=== PATIENT | male | born 1935 | race Caucasian/White ===

== ENCOUNTER 2016-10-23 21:17 | Inpatient (IN) | payer MEDICARE ==
--- NOTE | ~2016-10-23 | DS ---
Discharge Summary [facility] [address] [place]. [address] NAME: LARRY VELIZ : 31 STATUS : [facility]#: [id number] AGE: 81 ADM/REG DATE : 10/23/16 MR#: [id number] REPORT SERV DATE: 10/29/16 DICTATED BY: SIMON REYEZ DATE: 10/29/16 REPORT STATUS : Draft TRANSCRIBED BY: MODL DATE: 10/29/16 ADMISSION DATE: 10/23/2016 DISCHARGE DATE: FINAL DIAGNOSES: 1. Reflux esophagitis. 2. Duodenitis. 3. Status post gastrointestinal bleed. 4. Coronary artery disease with history of coronary artery bypass graft and stent. 5. Hypertension. 6. Status post acute kidney injury. DIAGNOSTIC EXAMS: Chest x-ray showing chronic changes bilaterally. No acute abnormality. Barium swallow showing normal deglutination without penetration or aspiration. Normal cervical and thoracic esophageal motility with no stricture, ulceration, or mass. Small sliding hiatal hernia. No GE reflux identified. HOSPITAL COURSE: Please refer to the H and P done by Dr. Lara, dated on October 23, 2016. Briefly, this is an 81-year-old female, who went to [facility] for hematemesis. The patient was found to have anemia and was initially placed in the intensive care unit. He was also found to have an ANAND, which resolved with hydration. The patient did not need any transfusion; however, they could not get the GI doctor there to evaluate the patient, so the daughter requested transfer of the patient to our hospital to be seen by Dr. Garcia. The patient was accepted by Dr. Lara. We monitored the H and H, which remained stable and on discharge, it was at 9.3 and 27.9. The patient got the above tests, and Dr. Garcia did an EGD, which showed moderately severe reflux esophagitis, hiatus hernia, and duodenitis. The patient was cleared to get his antiplatelets again and the patient did so without any problems. We did a barium swallow. He passed it and the patient was placed on a mechanical soft diet and tolerated it well. Meanwhile, the daughter was requesting that the patient to go to [facility] to gain his strength back up and he could also be with his . We got approval from [facility] today, so the patient will be transferred there with the above diagnosis. He will be on the following medications: Aspirin 81 mg a day, Coreg 3.125 mg twice a day, Plavix 75 mg a day, lisinopril 40 mg a day, multivitamin once a day, Protonix 40 mg twice a day, Paxil 20 mg at bedtime, Carafate 1 g q.a.c. and at bedtime, Crestor 10 mg at bedtime, MiraLAX p.r.n., Tylenol 325 mg p.r.n., ProAir two puffs p.r.n., Zofran p.r.n., nitroglycerin p.r.n., and Cortisporin otic every eight hours as needed. The patient will follow up with the [facility] doctor, then follow up with Dr. Lovelace on discharge, follow up with Dr. Garcia per his recommendations. This has been explained to the patient in front of the daughter. They agreed and understood the plan. ALEX/MICHAEL Simon Joseph Discharge Summary [address] [address] NAME: LARRY VELIZ : 33 STATUS : [facility]#: [id number] AGE: 81 ADM/REG DATE : 10/23/16 MR#: [id number] REPORT SERV DATE: 10/29/16 DICTATED BY: SIMON REYEZ DATE: 10/29/16 REPORT STATUS : Draft TRANSCRIBED BY: MICHAEL DATE: 10/29/16 Hammad Reyez / [id number] CC: Hammad Gavin M.D.
--- NOTE | ~2016-10-23 | EGD ---
EGD REPORT [facility] [address] [place] [address] NAME: LARRY WALDEN : 31 STATUS : ADM IN PAT#: [id number] AGE: 81 ADM/REG DATE : 10/23/16 MR#: [id number] REPORT SERV DATE: 10/27/16 DICTATED BY: MIRIAM JAVIER DATE: 10/27/16 REPORT STATUS : Draft TRANSCRIBED BY: [facility] DATE: 10/27/16 [facility] Patient Name: Larry Walden Date of : 1935 Attending MD: MIRIAM JAVIER MD Procedure Date No Time: 10/27/2016 Procedure: Upper GI endoscopy Indications: Dysphagia, Heartburn, Suspected esophageal reflux, Hematemesis, Nausea with vomiting Referring MD: CHERELLE PAREKH Medicines: as per anesthesia Complications: No immediate complications. Procedure: After obtaining informed consent, the endoscope was passed under direct vision. Throughout the procedure, the patient's blood pressure, pulse, and oxygen saturations were monitored continuously. The GIF [id number] was introduced through the mouth, and advanced to the third part of duodenum. The upper GI endoscopy was accomplished without difficulty. The patient tolerated the procedure. Findings: Moderately severe esophagitis was found in the lower third of the esophagus. A small hiatus hernia was present. Localized moderate inflammation characterized by erythema and friability was found in the duodenal bulb. Impression: - Moderately severe reflux esophagitis. - Hiatus hernia. - Duodenitis. Recommendation: - Follow an antireflux regimen. - Continue present medications. - Use sucralfate suspension 1 gram PO QID. Procedure Code(s): --- Professional --- 70243, Esophagogastroduodenoscopy, flexible, transoral; diagnostic, including collection of specimen(s) by brushing or washing, when performed (separate procedure) Diagnosis Code(s): --- Professional --- K21.0, Gastro-esophageal reflux disease with esophagitis K44.9, Diaphragmatic hernia without obstruction or gangrene EGD REPORT [facility] [address] [place] [address] NAME: LARRY WALDEN : 31 STATUS : ADM [facility]#: [id number] AGE: 81 ADM/REG DATE : 10/23/16 MR#: [id number] REPORT SERV DATE: 10/27/16 DICTATED BY: MIRIAM JAVIER. DATE: 10/27/16 REPORT STATUS : Draft TRANSCRIBED BY: [employer] DATE: 10/27/16 K29.80, Duodenitis without bleeding R13.10, Dysphagia, unspecified R12, Heartburn K92.0, Hematemesis R11.2, Nausea with vomiting, unspecified CPT copyright 2013 [employer]. All rights reserved. The codes documented in this report are preliminary and upon death surveys coder review may be revised to meet current compliance requirements. MIRIAM JAVIER MD 10/27/2016 2:19 PM This report has been signed electronically. Number of Addenda: 0 Note Initiated On: 10/27/2016 2:00 PM Scope Withdrawal Time 0 hours 0 minutes 0 seconds [address] [place] [address]
--- NOTE | ~2016-10-23 | DS ---
Discharge Summary [place] [place] [address] [place]. [address] NAME: LARRY VELIZ : 31 STATUS : DIS IN PAT#: [id number] AGE: 81 ADM/REG DATE : 10/23/16 MR#: [id number] REPORT SERV DATE: 11/01/16 DICTATED BY: SIMON REYEZ DATE: 10/31/16 REPORT STATUS : Draft TRANSCRIBED BY: MODOpal DATE: 10/31/16 ADMISSION DATE: 10/23/2016 DISCHARGE DATE: 10/31/2016 FINAL DIAGNOSES: 1. Reflux esophagitis. 2. Duodenitis. 3. Status post GI bleed. 4. CAD with history of CABG and stent. 5. Hypertension. 6. Status post acute kidney injury. HOSPITAL COURSE: Please refer to the H and P done by Dr. Lara on July 24. My interim discharge summary done 10/29, since my previous dictation the patient was observed for 2 more days because he has been having some retching and vomiting, when he wakes up in the morning; however, during the day he gets better. I discussed the case with GI and he said that he will have his symptoms for a while until that severe esophagitis in the lower 3rd of the esophagus gets better. This was also explained to the daughter. The patient today is also much better. He denies any vomiting and wants to go to [facility], so that he could see his there. The patient vitals remained stable. He will now be discharged there with the above diagnosis. He will continue his medications that I have dictated 2 days ago. He will follow up with the [facility] doctor, follow up with Dr. Garcia, as per his recommendation and follow up with Dr. Lovelace after [facility] discharge. The patient wanted me to discuss things with his daughter and I did in front of him in the room. TIME SPENT: Total 35 minutes. ALEX/MICHAEL Simon Reyez M.D. / [id number] CC: Hammad Gavin M.D.
--- NOTE | ~2016-10-23 | HP ---
History And Physical [facility] [address] [facility] [place]. [address] NAME: LARRY VELIZ : 33 STATUS : ADM IN PAT#: [id number] AGE: 81 ADM/REG DATE : 10/23/16 MR#: [id number] REPORT SERV DATE: 10/24/16 DICTATED BY: ILENE VIRGEN DATE: 10/23/16 REPORT STATUS : Draft TRANSCRIBED BY: MODL DATE: 10/23/16 DATE OF ADMISSION: 10/23/2016 HISTORY OF PRESENT ILLNESS: This patient was a direct transfer from [facility] where he was hospitalized starting 10/19/2016. The patient was transferred to [facility] because of the family request. I personally spoke with transferring physician Dr. Maximilian Fortune, who reported that the patient was admitted to the hospital because of nausea, vomiting, and hematemesis that he had on the day of admission to [facility] as well as initially he was diagnosed with anemia with hemoglobin being in the range of 8, and he was initially placed in intensive care unit and he was watched as well as he was found to have acute kidney injury which resolved with IV fluid hydration. The patient had abnormal swallowing study and he was found to have swallowing dysfunction as well. Because of still having nausea and vomiting, he was transferred to [facility] as well as Dr. Fortune was reluctant to start the patient on Plavix because he told me that the patient needs GI evaluation before Plavix should be restarted. They requested Dr. Garcia to see this patient because according to patient's daughter, Dr. Garcia did upper endoscopy on the patient in 07/2016, and at that time, according to patient's daughter, who is at the bedside, it was normal. The patient's daughter reported that on the day of admission to [facility], the patient had abdominal pain and vomiting and he vomited several times, she saw bright red blood in significant amount. The patient does not have now any chest pain, no shortness of breath, no abdominal pain, no fever, no rash. Daughter says that he is still having nausea, and he is having epigastric discomfort, but the patient does not have any chest pain, no shortness of breath, no abdominal pain, no fever, no rash. The patient also has hypertension. REVIEW OF SYSTEMS: All 14-point review of systems done and negative except what is stated in the history of present illness. PAST MEDICAL HISTORY: Past medical history on this patient is known for history of coronary artery disease with a history of a coronary artery bypass grafting, history of stent placement more than a year ago, history of hyperlipidemia, and hypertension. Also the patient's daughter reported that before this hospitalization at [facility], the patient had another hospitalization at [facility] and this hospitalization was on 09/28/2016 when he was diagnosed with pneumonia which was treated with Levaquin. PAST SURGICAL HISTORY: Includes appendectomy and history of coronary artery bypass grafting. The patient's urinalysis technician is Dr. Marquez, and janitor cleaner, Dr. Garcia. SOCIAL HISTORY: He lives with his family. He is . He quit smoking 40 years ago, was 1 pack a day. No alcohol. No recreational drug use. The patient's daughter denied any history of strokes. No history of thyroid disease. No history of diabetes. She reported that the patient was functioning well, was able to ambulate before this happened, but now, he is extremely weak. History And Physical [address] [address] NAME: LARRY VELIZ : 31 STATUS : ADM IN [facility]#: [id number] AGE: 81 ADM/REG DATE : 10/23/16 MR#: [id number] REPORT SERV DATE: 10/24/16 DICTATED BY: ILENE VIRGEN DATE: 10/23/16 REPORT STATUS : Draft TRANSCRIBED BY: MICHAEL DATE: 10/23/16 MEDICATIONS: Home medications include Tylenol 325 mg p.o. daily as needed, albuterol 2 puffs inhaled q.4 hours p.r.n., aspirin 81 mg daily, carvedilol 3.125 p.o. b.i.d., Plavix 75 mg daily which was on hold, Levaquin 50 mg daily, lisinopril 40 mg daily, multivitamins 1 tablet daily, nitroglycerin 0.4 mg sublingually as needed for chest pain, Zofran 4 mg twice a day p.r.n., paroxetine 20 mg daily, MiraLAX one packet daily, Crestor 10 mg daily, ear drops daily. FAMILY HISTORY: The patient's mother in 1988 from heart attack. The patient's father in 1977 from lung cancer. REVIEW OF SYSTEMS: All 14-point review of systems done and negative except what is stated in the history of present illness. PHYSICAL EXAMINATION: GENERAL: Well-nourished, well-developed male, not in acute distress. Resting quietly. VITAL SIGNS: Blood pressure 186/83, temperature 98.5, heart rate 76, respiratory rate 19, oxygen saturation 100 on room air. HEENT: Head atraumatic, normocephalic. Conjunctivae clear. Pupils are equal and reactive to light and accommodation. Extraocular muscles are intact. NECK: Supple. Trachea is midline. No supraclavicular or cervical lymphadenopathy. LUNGS: Diminished breath sounds bilaterally. Decreased respiratory effort. CARDIOVASCULAR SYSTEM: Regular rate and rhythm. Point of maximal impulse not displaced. Positive systolic murmur. ABDOMEN: Soft, nontender, nondistended. Positive normoactive bowel sounds. EXTREMITIES: No clubbing, cyanosis, or edema. SKIN: Normal color and turgor. LABORATORY RESULTS: Laboratory results were sent today from [facility]. I did a full review of laboratory results sent from [facility] which showed white count 4.9, hemoglobin 8.7, hematocrit 26.6, and platelet count 107. Sodium 141, potassium 4.2, chloride 105, carbon dioxide 27, BUN 10, creatinine 1.2, blood sugar was 98, calcium was 8.4. The patient had a chest x-ray, which was done on 10/19/2016 which showed enlarged heart, history of prior coronary artery bypass grafting, increased density at the left base is on the prior exam, chronically appearing interstitial reaction; interval placement of the PICC line, at that time he had a PICC line placement. Ultrasound of the kidney was within normal limits. Swallowing study which was done also at [facility]. The patient's swallowing mechanism was evaluated under fluoroscopy with assistance from speech pathology. Portable technique was utilized at the bed side. Fluoroscopy time was 2 minutes and 48 seconds. No permanent images were obtained. The patient was challenged with thin barium in which there was penetration and aspiration with some vallecular residue. With nectar thick, there was penetration and aspiration noted. With honey thick, there was laryngeal penetration with vallecular pooling. With puree, there was some penetration but no aspiration. Mechanical soft could not be administered due to the patient's being edentulous. History And Physical [place] [address] [facility] [place]. [address] NAME: LARRY VELIZ : 31 STATUS : ADM IN PAT#: [id number] AGE: 81 ADM/REG DATE : 10/23/16 MR#: [id number] REPORT SERV DATE: 10/24/16 DICTATED BY: ILENE VIRGEN DATE: 10/23/16 REPORT STATUS : Draft TRANSCRIBED BY: MODOpal DATE: 10/23/16 IMPRESSION: Penetration and some aspiration noted with several consistencies as discussed above. During this hospitalization, the patient was seen by breaker machine operator, Dr. Winter, his kidney function normalized. ASSESSMENT AND PLAN: This is an 81-year-old male, who basically was transferred from [facility] for further gastroenterological evaluation for his hematemesis and epigastric discomfort with nausea and vomiting. Dr. Vicente saw the patient today at [facility], and he is going to follow up on him tomorrow. Dr. Fotrune, physician at [facility] did not start the patient back on Plavix until his stomach will be evaluated, so janitor cleaner to make a decision on his Plavix if it should be started or he needs to have another upper endoscopy. Dr. Vicente is to be contracts advisor for Dr. Garcia according to Dr. Vicente report since I saw Dr. Vicente here. Dr. Vicente also was okay to restart aspirin, but he recommended to hold Plavix. Swallowing dysfunction with abnormal swallowing study. The patient had an evaluation at [facility]. For further recommendations to have swallowing study at [facility] because he had abnormalities in the swallowing and aspiration, so at [facility] he was recommended to be on thickened liquids, soft mechanical diet with meat grounded with gravy and aspiration precautions, but we do not see if it was recommended to have electrical stimulation therapy and technique was used at the bed side, so I would recommend modified barium swallowing study, may be on Wednesday. Acute kidney injury, currently resolved. We will recheck his creatinine tomorrow morning. If still normal, my partner could restart his lisinopril. Dr. Vicente also told me that it is okay to restart baby aspirin but I will put him also on Protonix. History of coronary artery disease, unclear if he has congestive heart failure or not, I will check his brain natriuretic peptide. Weakness, he may need a physical therapy. I will check on this patient's EKG. I will put him on hydralazine as needed for systolic blood pressure above 160. Currently, his blood pressure is elevated, it is 186. My partner, Dr. Goldman will see this patient starting tomorrow morning. MG/MODL Ilene Virgen M.D. History And Physical [address] [address] NAME: LARRY VELIZ : 31 STATUS : ADM IN PAT#: [id number] AGE: 81 ADM/REG DATE : 10/23/16 MR#: [id number] REPORT SERV DATE: 10/24/16 DICTATED BY: ILENE VIRGEN DATE: 10/23/16 REPORT STATUS : Draft TRANSCRIBED BY: MICHAEL DATE: 10/23/16 / [id number] CC: Ilene Virgen M.D.
[2016-10-23] MEDS ORDERED: COREG3 PO (21:48)
[2016-10-23] MEDS ORDERED: CRESTOR10 PO (21:48)
[2016-10-23] MEDS ORDERED: PLAVIX PO (21:48)
[2016-10-23] MEDS ORDERED: PAX20 PO (21:50)
[2016-10-23] MEDS ORDERED: ASAB PO (21:50)
[2016-10-23] MEDS ORDERED: LISINOPRIL40 MG PO (21:50)
[2016-10-23] MEDS ORDERED: MULTIVIT/MIN PO (21:51)
[2016-10-23] MEDS ORDERED: MIRALAX POWDER1 PKT PO (21:51)
[2016-10-23] MEDS ORDERED: T PO (21:52)
[2016-10-23] MEDS ORDERED: PROAIR HFA INH (21:52)
[2016-10-23] MEDS ORDERED: ZOFRAN ODT4 MG PO (21:52)
[2016-10-23] MEDS ORDERED: RX EAR DROPS OT (21:53)
[2016-10-23] MEDS ORDERED: LEVAQUIN5T PO (21:54)
[2016-10-23] MEDS ORDERED: NITROSTAT0.4 MG PO (21:54)
[2016-10-24 01:08] LABS: ULTRASENSITIVE TSH 1.35 MCIU/ML (0.358-3.740)
[2016-10-24 01:09] LABS: FOLATE 33.8 NG/ML (>5.2)
[2016-10-24 07:12] LABS: BASOPHILS 0.2 %; BASOPHILS ABSOLUTE 0.01 10/3/uL (0.0-0.16); EOSINOPHILS 3.2 %; EOSINOPHILS ABSOLUTE 0.19 10/3/uL (0.0-0.53); HEMATOCRIT 27.7 % (40.0-51.0); IMMATURE GRANULOCYTES 0.2 %; IMMATURE GRANULOCYTES ABSOLUTE 0.01 10/3/uL (0.0-0.11); LYMPHOCYTES 30.4 %; LYMPHOCYTES ABSOLUTE 1.79 10/3/uL (0.67-4.30); MEAN CORPUS HGB CONC 32.5 g/dL (32.0-36.0); MEAN CORPUSCULAR HEMOGLOB 30.7 pg (26.0-34.0); MEAN CORPUSCULAR VOLUME 94.5 fL (80-100); MEAN PLATELET VOLUME 9.3 fL (9.2-13.0); MONOCYTES 8.5 %; NEUTROPHILS 57.5 %; NEUTROPHILS ABSOLUTE 3.39 10/3/uL (2.02-8.40); PLATELET COUNT 134 10/3/uL (150-400); RBC DISTRIBUTION WIDTH 13.9 % (12.0-16.0); RED CELL COUNT 2.93 10/6/uL (4.7-6.1); WHITE BLOOD CELLS 5.9 10/3/uL (4.5-10.5)
[2016-10-24 07:15] LABS: MANUAL DIFF NO %
[2016-10-24 07:27] LABS: BUN (BLOOD UREA NITROGEN) 9 MG/DL (6-23); CALCIUM, SERUM 8.5 MG/DL (8.5-10.4); CHLORIDE, SERUM 109 MMOL/L (96-112); CO2 (CARBON DIOXIDE) 24 MMOL/L (24-34); CREATININE 0.98 MG/DL (0.70-1.30); GFR AFRICAN AMERICAN 82 ML/MIN (>=60); GFR NON AFRICAN AMERICAN 71 ML/MIN (>=60); GLUCOSE, SERUM 87 MG/DL (60-99); POTASSIUM, SERUM 3.9 MMOL/L (3.5-5.3); SODIUM, SERUM 143 MMOL/L (135-148)
[2016-10-24 16:58] LABS: % IRON SAT 13 % (20-50); ALBUMIN 2.5 G/DL (3.5-5.0); ALKALINE PHOSPHATASE 63 U/L (45-117); DIRECT BILIRUBIN 0.1 MG/DL (0.0-0.4); FERRITIN 316 NG/ML (26-388); INDIRECT BILIRUBIN(NOT ORDER) 0.2 MG/DL (0.1-0.9); IRON BINDING CAPACITY 171 MCG/DL (250-450); IRON, SERUM 23 MCG/DL (35-150); SGOT(AST) 20 U/L (5-40); SGPT(ALT) 21 U/L (5-65); TOTAL BILIRUBIN 0.3 MG/DL (0-1.2); TOTAL PROTEIN 5.9 G/DL (6.0-8.5)
[2016-10-24 16:59] LABS: FOLATE 33.3 NG/ML (>5.2)
[2016-10-24] MEDS ORDERED: CORTOTSOL OT (17:20)
[2016-10-24 19:26] LABS: ASCORBIC ACID (UR NOT ORDER) NEG (NEG); BILIRUBIN, URINE NEGATIVE (NEG); KETONE, URINE TRACE MG/DL (NEG); LEUKOCYTE ESTERASE(NOT OR NEG (NEG); WBC (NOT ORDERED) (RFLEX) < 1 (0-5)
[2016-10-25 04:28] LABS: BASOPHILS 0.5 %; BASOPHILS ABSOLUTE 0.03 10/3/uL (0.0-0.16); EOSINOPHILS 4.6 %; EOSINOPHILS ABSOLUTE 0.27 10/3/uL (0.0-0.53); HEMOGLOBIN 9.3 g/dL (13.6-17.8); IMMATURE GRANULOCYTES 0.2 %; IMMATURE GRANULOCYTES ABSOLUTE 0.01 10/3/uL (0.0-0.11); LYMPHOCYTES 36.2 %; LYMPHOCYTES ABSOLUTE 2.14 10/3/uL (0.67-4.30); MEAN CORPUS HGB CONC 33.2 g/dL (32.0-36.0); MEAN CORPUSCULAR HEMOGLOB 32.4 pg (26.0-34.0); MEAN PLATELET VOLUME 9.7 fL (9.2-13.0); MONOCYTES 8.6 %; MONOCYTES ABSOLUTE 0.51 10/3/uL (0.21-1.20); NEUTROPHILS 49.9 %; NEUTROPHILS ABSOLUTE 2.95 10/3/uL (2.02-8.40); PLATELET COUNT 135 10/3/uL (150-400); RBC DISTRIBUTION WIDTH 13.8 % (12.0-16.0); RED CELL COUNT 2.87 10/6/uL (4.7-6.1); WHITE BLOOD CELLS 5.9 10/3/uL (4.5-10.5)
[2016-10-25 04:29] LABS: MANUAL DIFF NO %; MEAN CORPUSCULAR VOLUME 97.6 fL (80-100)
[2016-10-25 04:42] LABS: BUN (BLOOD UREA NITROGEN) 11 MG/DL (6-23); CALCIUM, SERUM 8.3 MG/DL (8.5-10.4); CHLORIDE, SERUM 110 MMOL/L (96-112); CO2 (CARBON DIOXIDE) 24 MMOL/L (24-34); GFR AFRICAN AMERICAN 72 ML/MIN (>=60); GFR NON AFRICAN AMERICAN 62 ML/MIN (>=60); GLUCOSE, SERUM 92 MG/DL (60-99); POTASSIUM, SERUM 4.1 MMOL/L (3.5-5.3); SODIUM, SERUM 142 MMOL/L (135-148)
[2016-10-26 07:14] LABS: BASOPHILS 0.3 %; BASOPHILS ABSOLUTE 0.02 10/3/uL (0.0-0.16); EOSINOPHILS ABSOLUTE 0.17 10/3/uL (0.0-0.53); HEMATOCRIT 27.2 % (40.0-51.0); IMMATURE GRANULOCYTES 0.2 %; IMMATURE GRANULOCYTES ABSOLUTE 0.01 10/3/uL (0.0-0.11); LYMPHOCYTES 33.3 %; LYMPHOCYTES ABSOLUTE 1.92 10/3/uL (0.67-4.30); MEAN CORPUS HGB CONC 33.1 g/dL (32.0-36.0); MEAN CORPUSCULAR VOLUME 96.8 fL (80-100); MEAN PLATELET VOLUME 9.7 fL (9.2-13.0); MONOCYTES 9.5 %; MONOCYTES ABSOLUTE 0.55 10/3/uL (0.21-1.20); NEUTROPHILS 53.7 %; NEUTROPHILS ABSOLUTE 3.09 10/3/uL (2.02-8.40); PLATELET COUNT 145 10/3/uL (150-400); RBC DISTRIBUTION WIDTH 13.6 % (12.0-16.0); RED CELL COUNT 2.81 10/6/uL (4.7-6.1); WHITE BLOOD CELLS 5.8 10/3/uL (4.5-10.5)
[2016-10-26 07:18] LABS: MANUAL DIFF NO %
[2016-10-26 07:31] LABS: BUN (BLOOD UREA NITROGEN) 11 MG/DL (6-23); CALCIUM, SERUM 8.4 MG/DL (8.5-10.4); CHLORIDE, SERUM 108 MMOL/L (96-112); CO2 (CARBON DIOXIDE) 24 MMOL/L (24-34); CREATININE 0.98 MG/DL (0.70-1.30); GFR AFRICAN AMERICAN 82 ML/MIN (>=60); GFR NON AFRICAN AMERICAN 71 ML/MIN (>=60); GLUCOSE, SERUM 84 MG/DL (60-99); SODIUM, SERUM 141 MMOL/L (135-148)
[2016-10-27 05:27] LABS: BASOPHILS 0.3 %; BASOPHILS ABSOLUTE 0.02 10/3/uL (0.0-0.16); EOSINOPHILS 2.2 %; EOSINOPHILS ABSOLUTE 0.13 10/3/uL (0.0-0.53); HEMATOCRIT 28.2 % (40.0-51.0); HEMOGLOBIN 9.3 g/dL (13.6-17.8); IMMATURE GRANULOCYTES 0.2 %; IMMATURE GRANULOCYTES ABSOLUTE 0.01 10/3/uL (0.0-0.11); LYMPHOCYTES 27.1 %; LYMPHOCYTES ABSOLUTE 1.58 10/3/uL (0.67-4.30); MEAN CORPUSCULAR HEMOGLOB 31.7 pg (26.0-34.0); MEAN CORPUSCULAR VOLUME 96.2 fL (80-100); MEAN PLATELET VOLUME 9.4 fL (9.2-13.0); MONOCYTES 10.8 %; MONOCYTES ABSOLUTE 0.63 10/3/uL (0.21-1.20); NEUTROPHILS 59.4 %; NEUTROPHILS ABSOLUTE 3.46 10/3/uL (2.02-8.40); PLATELET COUNT 188 10/3/uL (150-400); RBC DISTRIBUTION WIDTH 13.7 % (12.0-16.0); RED CELL COUNT 2.93 10/6/uL (4.7-6.1); WHITE BLOOD CELLS 5.8 10/3/uL (4.5-10.5)
[2016-10-27 05:30] LABS: MANUAL DIFF NO %
[2016-10-27 05:57] LABS: BUN (BLOOD UREA NITROGEN) 12 MG/DL (6-23); CALCIUM, SERUM 8.3 MG/DL (8.5-10.4); CHLORIDE, SERUM 107 MMOL/L (96-112); CO2 (CARBON DIOXIDE) 26 MMOL/L (24-34); CREATININE 1.04 MG/DL (0.70-1.30); GFR AFRICAN AMERICAN 77 ML/MIN (>=60); GFR NON AFRICAN AMERICAN 66 ML/MIN (>=60); GLUCOSE, SERUM 112 MG/DL (60-99); POTASSIUM, SERUM 3.9 MMOL/L (3.5-5.3); SODIUM, SERUM 140 MMOL/L (135-148)
[2016-10-28 05:15] LABS: BASOPHILS 0.2 %; BASOPHILS ABSOLUTE 0.01 10/3/uL (0.0-0.16); EOSINOPHILS 2.9 %; EOSINOPHILS ABSOLUTE 0.14 10/3/uL (0.0-0.53); HEMATOCRIT 27.4 % (40.0-51.0); HEMOGLOBIN 8.9 g/dL (13.6-17.8); LYMPHOCYTES 35.5 %; LYMPHOCYTES ABSOLUTE 1.73 10/3/uL (0.67-4.30); MEAN CORPUS HGB CONC 32.5 g/dL (32.0-36.0); MEAN CORPUSCULAR HEMOGLOB 31.3 pg (26.0-34.0); MEAN CORPUSCULAR VOLUME 96.5 fL (80-100); MEAN PLATELET VOLUME 9.2 fL (9.2-13.0); MONOCYTES 10.9 %; MONOCYTES ABSOLUTE 0.53 10/3/uL (0.21-1.20); NEUTROPHILS 50.5 %; NEUTROPHILS ABSOLUTE 2.46 10/3/uL (2.02-8.40); PLATELET COUNT 179 10/3/uL (150-400); RBC DISTRIBUTION WIDTH 13.6 % (12.0-16.0); RED CELL COUNT 2.84 10/6/uL (4.7-6.1); WHITE BLOOD CELLS 4.9 10/3/uL (4.5-10.5)
[2016-10-28 05:20] LABS: MANUAL DIFF NO %
[2016-10-28 05:29] LABS: CALCIUM, SERUM 7.9 MG/DL (8.5-10.4); CHLORIDE, SERUM 107 MMOL/L (96-112); CO2 (CARBON DIOXIDE) 28 MMOL/L (24-34); CREATININE 1.02 MG/DL (0.70-1.30); GFR AFRICAN AMERICAN 78 ML/MIN (>=60); GFR NON AFRICAN AMERICAN 68 ML/MIN (>=60); GLUCOSE, SERUM 108 MG/DL (60-99); POTASSIUM, SERUM 4.1 MMOL/L (3.5-5.3); SODIUM, SERUM 141 MMOL/L (135-148)
[2016-10-28 05:35] LABS: BUN (BLOOD UREA NITROGEN) 8 MG/DL (6-23)
[2016-10-29 05:20] LABS: BASOPHILS 0.4 %; BASOPHILS ABSOLUTE 0.02 10/3/uL (0.0-0.16); EOSINOPHILS ABSOLUTE 0.11 10/3/uL (0.0-0.53); HEMATOCRIT 27.9 % (40.0-51.0); HEMOGLOBIN 9.3 g/dL (13.6-17.8); IMMATURE GRANULOCYTES 0.2 %; IMMATURE GRANULOCYTES ABSOLUTE 0.01 10/3/uL (0.0-0.11); LYMPHOCYTES ABSOLUTE 1.95 10/3/uL (0.67-4.30); MEAN CORPUS HGB CONC 33.3 g/dL (32.0-36.0); MEAN CORPUSCULAR HEMOGLOB 30.8 pg (26.0-34.0); MEAN PLATELET VOLUME 9.3 fL (9.2-13.0); MONOCYTES 5.7 %; MONOCYTES ABSOLUTE 0.31 10/3/uL (0.21-1.20); NEUTROPHILS 55.7 %; NEUTROPHILS ABSOLUTE 3.01 10/3/uL (2.02-8.40); RBC DISTRIBUTION WIDTH 13.9 % (12.0-16.0); RED CELL COUNT 3.02 10/6/uL (4.7-6.1); WHITE BLOOD CELLS 5.4 10/3/uL (4.5-10.5)
[2016-10-29 05:27] LABS: MANUAL DIFF NO %; MEAN CORPUSCULAR VOLUME 92.4 fL (80-100); PLATELET COUNT 234 10/3/uL (150-400)
[2016-10-30 05:37] LABS: BUN (BLOOD UREA NITROGEN) 8 MG/DL (6-23); CHLORIDE, SERUM 108 MMOL/L (96-112); CO2 (CARBON DIOXIDE) 27 MMOL/L (24-34); CREATININE 1.11 MG/DL (0.70-1.30); GFR AFRICAN AMERICAN 71 ML/MIN (>=60); GFR NON AFRICAN AMERICAN 61 ML/MIN (>=60); GLUCOSE, SERUM 116 MG/DL (60-99); POTASSIUM, SERUM 3.7 MMOL/L (3.5-5.3); SODIUM, SERUM 143 MMOL/L (135-148)
[2016-10-30 05:49] LABS: BASOPHILS 0.6 %; BASOPHILS ABSOLUTE 0.03 10/3/uL (0.0-0.16); EOSINOPHILS 3.6 %; EOSINOPHILS ABSOLUTE 0.18 10/3/uL (0.0-0.53); HEMATOCRIT 27.9 % (40.0-51.0); HEMOGLOBIN 9.2 g/dL (13.6-17.8); LYMPHOCYTES 38.7 %; LYMPHOCYTES ABSOLUTE 1.91 10/3/uL (0.67-4.30); MEAN CORPUSCULAR HEMOGLOB 31.7 pg (26.0-34.0); MEAN PLATELET VOLUME 9.2 fL (9.2-13.0); MONOCYTES 12.1 %; NEUTROPHILS ABSOLUTE 2.22 10/3/uL (2.02-8.40); PLATELET COUNT 274 10/3/uL (150-400); RBC DISTRIBUTION WIDTH 13.9 % (12.0-16.0); WHITE BLOOD CELLS 4.9 10/3/uL (4.5-10.5)
[2016-10-30 05:55] LABS: MANUAL DIFF NO %; MEAN CORPUSCULAR VOLUME 96.2 fL (80-100)
[2016-10-31 05:31] LABS: BUN (BLOOD UREA NITROGEN) 7 MG/DL (6-23); CHLORIDE, SERUM 108 MMOL/L (96-112); CO2 (CARBON DIOXIDE) 30 MMOL/L (24-34); CREATININE 1.11 MG/DL (0.70-1.30); GFR AFRICAN AMERICAN 71 ML/MIN (>=60); GFR NON AFRICAN AMERICAN 61 ML/MIN (>=60); GLUCOSE, SERUM 113 MG/DL (60-99); POTASSIUM, SERUM 3.9 MMOL/L (3.5-5.3); SODIUM, SERUM 144 MMOL/L (135-148)
== END 2016-10-31 11:28 | DRG 379 ==
LOC: 5SO 21:17
PROVIDERS: Hospitalist; Internal Medicine; Internal Medicine Gastroenterology
PROC: 0DJ08ZZ Inspection of Upper Intestinal Tract, Via Natural or Artificial Opening Endoscopic (ICD-10-PCS; principal; 2016-10-27 12:00)
DX: K92.0 Hematemesis (principal); Z95.1 Presence of aortocoronary bypass graft; I10 Essential (primary) hypertension; K21.0 Gastro-esophageal reflux disease with esophagitis; I25.10 Atherosclerotic heart disease of native coronary artery without angina pectoris; K44.9 Diaphragmatic hernia without obstruction or gangrene; K29.80 Duodenitis without bleeding; E78.5 Hyperlipidemia, unspecified; Z79.02 Long term (current) use of antithrombotics/antiplatelets; Z79.82 Long term (current) use of aspirin; Z95.5 Presence of coronary angioplasty implant and graft; Z87.01 Personal history of pneumonia (recurrent); Z79.899 Other long term (current) drug therapy; Z90.49 Acquired absence of other specified parts of digestive tract; Z87.891 Personal history of nicotine dependence; Z98.890 Other specified postprocedural states; Z82.49 Family history of ischemic heart disease and other diseases of the circulatory system; Z80.1 Family history of malignant neoplasm of trachea, bronchus and lung
CPT/HCPCS: 71010; 74220; 80048; 80076; 81001; 82272; 82607; 82728; 82746; 83540; 83550; 83735; 83880; 84443; 85025; 93005; 97116-GP; 97162-GP; A9270-GY; C9113; G8978-CK-GP; G8979-CK-GP; J0360; J2405